=== PATIENT | male | born 1970 | race Caucasian/White ===

== ENCOUNTER 2017-11-14 17:55 | Emergency (ER) | payer MEDICAID, SELFPAY ==
[2017-11-14 17:56] VITALS: BP 176/113; PULSE 101; RESP 18; TEMP 37; O2SAT 97; BMI 28.3
--- NOTE | 2017-11-14 18:15 | ED.RN ---
pts volume started to escalate in triage, pt already refusing to talk to any nurses and refusing to put gown on. Security called to triage. Security sat with pt in the hallway until room 4 was available. Pt continues to yell about calling [facility] to get him a room, i need to get out of here now call them they will come get me im fucking dying
--- NOTE | 2017-11-14 18:20 | ED.RN ---
upon entering room pt states he wanted to be life flighted to [facility] because he was dying. informed pt that dr had to assess pt first. pt stated that he was not going to be assessed, that he was dying, and he would rather go in the [place] naturally. pt yelling and swearing while leaving er, ambulated without assistance out of department.
[2017-11-14 18:58] LABS: Absolute Lymphocyte Count 2.85 X10^3/ul (0.83-4.51); Basophil# 0.06 X10^3/uL; Basophil% 0.9 % (0-1); Eosinophil# 0.08 X10^3/uL; Eosinophils% 1.2 % (0-5); Hematocrit 35.2 % (40-54); Hemoglobin 11.4 g/dl (13.0-16.5); Lymphocyte # 2.85 X10^3/ul (4.0); Lymphocyte % 44.2 % (19-41); Mean Corp Hgb Conc 32.4 g/gl (32-36); Mean Corpuscular Hgb 26.7 pg (27.0-32.0); Mean Corpuscular Volume 82.4 fL (80-94); Mean Platelet Vol. 10.7 fl (6.2-12.0); Monocyte# 0.43 X10^3/uL; Monocyte% 6.7 % (0-10); Neutrophil # 3.03 X10^3/uL (2.7-7.7); Platelet Count 192 K/mm3 (150-450); RBC Distribution Width CV 17.9 % (11.6-14.6); RBC Distribution Width SD 54.2 fl (35.1-43.9); Red Blood Count 4.27 M/mm3 (4.6-6.2); White Blood Count 6.5 K/mm3 (4.4-11.0)
[2017-11-14 18:59] LABS: POSITIVE COUNT NO; POSITIVE DIFFERENTIAL NO; POSITIVE MORPHOLOGY NO
[2017-11-14 19:04] LABS: International Normalized Ratio 1.1; Prothrombin Time (Protime)PT. 14.1 SECONDS (11.7-14.9)
[2017-11-14 19:05] LABS: Anion Gap 11 (5-15); BUN 8 mg/dL (7-18); BUN/Creat Ratio 10.4 RATIO (10-20); Calcium,Total 8.6 mg/dL (8.5-10.1); Chloride 105 mmol/L (98-107); Creatinine, Serum 0.77 mg/dL (0.70-1.30); EST Glomerular Filtration Rate 115 mL/min (>60); Est Glom Filt Rate - Afr Amer 139 mL/min (>60); Estimated Creatinine Clearance 132.59 ml/min; Glucose 94 mg/dL (74-106); Partial Thromboplast Time 36.4 Seconds (24.1-36.2); Potassium 3.7 mmol/L (3.5-5.1); Sodium Level 140 mmol/L (136-145)
--- NOTE | 2017-11-14 19:16 | ED.RN ---
PT WAS YELLING, THIS RN, ANOTHER RN, HRO OFFICER, POOLING OPERATOR AND CHARGE OFFICER ENTERED ROOM, PT CONTINUED TO YELL THAT HE WAS LEAVING AND WANTED TO GO TO ANOTHER HOSP. AND THAT IF WE DIDNT TAKE HIS IV OUT THAT HE WOULD RIP IT OUT HIMSELF, WE ASKED THE PT TO SIT DOWN, THE PT REFUSED AND KEPT YELLING THEM WENT ON TO RIP HIS IV OUT AND WALKED OUT THE DOOR, HRO OFFICER AND POOLING OPERATOR ESCORTED THE PT OFF OF THE PROPERTY
--- NOTE | 2017-11-14 19:34 | ED.RN ---
PT SPOTTED BY A FAMILY MEMBER VISITING A DIFFERENT PT APPROX 1 BLOCK FROM THE HOSPITAL. A FEMALE FRIEND AND/OR FAMILY MEMBER ENTERED THE ER ASKING FOR THE PT TO PICK HIM UP.SHE WAS NOTIFIED THAT HE WAS STILL CLOSE TO THE HOSPITAL. SAID FEMALE LEFT TO GO PICK THE PATIENT UP
--- NOTE | 2017-11-14 23:41 | ED.VISSUMM ---
- ER Visit Summary Date of Service: 11/14/17 Chief Complaint: Vomiting and blood in stool History of Present Illness: The patient is a 47 M who is an unreliable informant. He is clearly intoxicated. He reports that he began having blood in his stool and vomiting blood 10 days ago. Reports that he has vomited all day. He also reports that he is having black formed stool 3 times a day for the past 10 days. He states that he was at [place] yesterday. Physical Examination: Vitals: Stable. Afebrile. General: Well-nourished and well-developed. Head: Normocephalic atraumatic. Neck: Supple, no lymphadenopathy. No JVD. Nontender. Cardiovascular: Regular rate and rhythm. No murmurs. Respiratory: No respiratory distress. Clear to auscultation bilaterally. Abdominal: Soft, nontender, nondistended, normal bowel sounds. No guarding, rebound, or peritoneal signs. Back: Nontender. Extremities: Nontender, no edema. Skin: Normal color, no rash. Neurologic: Alert and oriented ?3. Cranial nerves II through XII are intact. Normal strength and sensation. Psych: Agitated and clearly intoxicated. Test Results: CBC is marked for an H&H of 11.4 and 35.2. Lymphocytes of 44. Hemoglobin on July 13 was 12.1. Chem-7 is normal. His BUN is normal. INR is 1.1. PTT is 36.4. Blood alcohol level is 270. Emergency Department Course and Treatment: Patient is combative and verbally abusive in the emergency department. He reports that he spoke with his significant other who is going to pick him up. He pulled out his IV and was escorted to the ramp to the emergency department by police. Treatment Plan: Patient was picked up by his family member or significant other. He left prior to labs returning. Disposition: Left prior to completion of treatment. Impression: 1. Alcohol intoxication. 2. Left prior to completion of treatment. 3. History of esophageal varices. This note was generated with [employer] dictation software. It may contain incorrect words, spelling, and punctuation that were not noted in review of the chart prior to signing ED Disposition - Plan for ED Patient: Disposition: Against Medical Advice Chief Complaint: GI Bleed Referrals: Care Physician,No Primary [Primary Care Provider] -
== END 2017-11-14 19:30 | disposition left against medical advice (07) ==
PROVIDERS: Emergency Provider Emergency Medicine
DX: F10.229 Alcohol dependence with intoxication, unspecified (principal); Y90.8 Blood alcohol level of 240 mg/100 ml or more; R11.2 Nausea with vomiting, unspecified; Z72.0 Tobacco use; K92.1 Melena
CPT/HCPCS: 80048; 80320; 85025; 85610; 85730; 99282; J7030; A4216; G0480

== ENCOUNTER 2018-05-10 22:09 | Emergency (ER) | payer MEDICAID, SELFPAY ==
[2018-05-10 22:10] VITALS: BP 159/85; PULSE 73; RESP 16; TEMP 36.8; O2SAT 99; BMI 29.0
--- NOTE | 2018-05-10 22:40 | ED.VISSUMM ---
- ER Visit Summary Date of Service: 05/10/18 Chief Complaint: Upper GI Bleed History of Present Illness: The patient is a 47 M with a history of esophageal varices is presenting with nausea and vomiting bright red blood, he has had 2 episodes in the past 7 hours. He describes these as bright red blood with clots. He has not drank alcohol in over a month, he is currently in nursing home. He has epigastric pain, no lower abdominal pain. Physical Examination: Patient appears in some distress. Moist mucous membranes, no obvious facial deformity No C-spine tenderness supple neck. Regular rate and rhythm without any obvious murmurs Clear lungs bilaterally speaking in full sentences without any obvious respiratory distress Abdomen is soft with some epigastric tenderness, no lower abdominal pain, no guarding or rebound Moves all extremities without any difficulty or pain. Skin does not show any obvious rashes or lesions, no trauma. Alert oriented ?3 with no gross focal deficit Emergency Department Course and Treatment: NG tube was placed, patient did have a small amount of blood present. Hemoglobin is 10. He is currently stable. After discussing with surgery patient will be transferred there is no capability of doing endoscopy for variceal bleeds at this hospital since there is no GI coverage. Patient remained stable there is no reason for transfusion although he was typed and screened. Protonix IV was given. Disposition: Plan is to transfer in guarded condition Impression: Upper GI bleed This note was generated with [employer] dictation software. It may contain incorrect words, spelling, and punctuation that were not noted in review of the chart prior to signing ED Disposition - Plan for ED Patient: Chief Complaint: Nausea/Vomiting Referrals: Care Physician,No Primary [Primary Care Provider] -
--- NOTE | 2018-05-10 22:48 | ED.DCSUM_ITS ---
- ER Visit Summary Date of Service: 05/10/18 Chief Complaint: Upper GI Bleed History of Present Illness: The patient is a 47 M with a history of esophageal varices is presenting with nausea and vomiting bright red blood, he has had 2 episodes in the past 7 hours. He describes these as bright red blood with clots. He has not drank alcohol in over a month, he is currently in [facility]. He has epigastric pain, no lower abdominal pain. Physical Examination: Patient appears in some distress. Moist mucous membranes, no obvious facial deformity No C-spine tenderness supple neck. Regular rate and rhythm without any obvious murmurs Clear lungs bilaterally speaking in full sentences without any obvious respiratory distress Abdomen is soft with some epigastric tenderness, no lower abdominal pain, no guarding or rebound Moves all extremities without any difficulty or pain. Skin does not show any obvious rashes or lesions, no trauma. Alert oriented ?3 with no gross focal deficit Emergency Department Course and Treatment: NG tube was placed, patient did have a small amount of blood present. Hemoglobin is 10. He is currently stable. After discussing with surgery patient will be transferred there is no capability of doing endoscopy for variceal bleeds at this hospital since there is no GI coverage. Patient remained stable there is no reason for transfusion although he was typed and screened. Protonix IV was given. Disposition: Plan is to transfer in guarded condition Impression: Upper GI bleed This note was generated with [employer] dictation software. It may contain incorrect words, spelling, and punctuation that were not noted in review of the chart prior to signing ED Disposition - Plan for ED Patient: Chief Complaint: Nausea/Vomiting Referrals: Care Physician,No Primary [Primary Care Provider] -
[2018-05-10] MEDS: Ondansetron 4 MG/2 ML Vial IV (23:11)
[2018-05-10] MEDS: Lidocaine 4% 5 ML Ampul 2 ML INHALATION (23:11)
[2018-05-10 23:15] VITALS: PULSE 72; RESP 16
--- NOTE | 2018-05-10 23:30 | RAD_ITS ---
STUDY: X-RAY - ABDOMEN/PELVIS REASON FOR EXAM: Male, 47 years old. NG tube placement TECHNIQUE: 1 view COMPARISON: June 26, 2017 FINDINGS: The tip of the nasogastric tube is in the stomach. There is no bowel distention or free intraperitoneal air. No abnormal calcifications are seen projecting over the kidneys. Electronically Signed: Cristóbal Martínez MD at 0:00 EST Tel , Service support , RAD/Abdomen Single View (Portable)
[2018-05-10 23:37] LABS: ALB/GLOB Ratio 0.9 RATIO (0.9-2.4); AST(SGOT) 40 U/L (15-37); Alanine Aminotransfer ALT/SGPT 52 U/L (16-61); Albumin, Serum 3.5 g/dL (3.2-5.0); Alkaline Phosphatase 141 U/L (45-117); Anion Gap 7 (5-15); BUN 13 mg/dL (7-18); BUN/Creat Ratio 18.1 RATIO (10-20); Calcium,Total 8.5 mg/dL (8.5-10.1); Chloride 104 mmol/L (98-107); Creatinine, Serum 0.72 mg/dL (0.70-1.30); EST Glomerular Filtration Rate 124 mL/min (>60); Est Glom Filt Rate - Afr Amer 150 mL/min (>60); Globulin 4.1 g/dL (2.2-4.2); Glucose 81 mg/dL (74-106); Potassium 3.5 mmol/L (3.5-5.1); Protein, Total 7.6 g/dL (6.4-8.2); Sodium Level 139 mmol/L (136-145)
[2018-05-10 23:41] LABS: Absolute Lymphocyte Count 2.05 X10^3/ul (0.83-4.51); Absolute Neutrophil Count 2.1 X10^3/uL (2.0-7.7); Basophil# 0.04 X10^3/uL; Basophil% 0.8 % (0-1); Eosinophil# 0.15 X10^3/uL; Hematocrit 32.2 % (40-54); Lymphocyte # 2.05 X10^3/ul (4.0); Lymphocyte % 41.7 % (19-41); Mean Corp Hgb Conc 31.1 g/gl (32-36); Mean Corpuscular Hgb 25.1 pg (27.0-32.0); Mean Corpuscular Volume 80.7 fL (80-94); Monocyte% 12.2 % (0-10); Neutrophil # 2.08 X10^3/uL (2.7-7.7); Neutrophil % 42.3 % (47-70); Platelet Count 129 K/mm3 (150-450); RBC Distribution Width CV 17.4 % (11.6-14.6); RBC Distribution Width SD 50.6 fl (35.1-43.9); Red Blood Count 3.99 M/mm3 (4.6-6.2); White Blood Count 4.9 K/mm3 (4.4-11.0)
[2018-05-10 23:44] LABS: Differential Indicated SCAN CRITERIA MET; POSITIVE COUNT NO; POSITIVE DIFFERENTIAL NO; POSITIVE MORPHOLOGY YES
[2018-05-10 23:57] LABS: Differential Comment SCAN; Platelet Estimate MOD DEC (ADEQ); Platelet Morphology LARGE
[2018-05-11 00:29] VITALS: BP 126/100; PULSE 79; RESP 18; O2SAT 97
--- NOTE | 2018-05-11 02:58 | NURSING ---
ACCEPTED AT [facility] UNDER DR. AGUILAR ROOM 3114-6 REPORT
[2018-05-11 03:13] VITALS: BP 149/78; PULSE 68; RESP 18; O2SAT 98
== END 2018-05-11 04:30 | disposition short-term general hospital (02) ==
PROVIDERS: Emergency Provider Emergency Medicine
DX: K92.0 Hematemesis (principal); K92.2 Gastrointestinal hemorrhage, unspecified
CPT/HCPCS: 74018; 80053; 82274; 85025; 86850; 86900; 94640; 96365; 96366; 96375; 99285; J7040; A4216; J2405; J3490

== ENCOUNTER 2021-01-05 08:08 | Inpatient (IN) | payer MEDICAID, SELFPAY ==
[2019-09-19 22:27] VITALS: BMI 30.1
[2021-01-05] VITALS (8 sets, daily range): BP systolic 126–156; BP diastolic 70–116; PULSE 68–96; RESP 16–17; TEMP 35.7–37.1; O2SAT 95–98; BMI 27.8; BMI 26.4
[2021-01-05 09:07] LABS: Absolute Lymphocyte Count 1.93 X10^3/uL (0.83-4.51); Absolute Neutrophil Count 3.4 X10^3/uL (2.0-7.7); Basophil# 0.07 X10^3/uL; Basophil% 1.2 % (0-1); Eosinophil# 0.04 X10^3/uL; Eosinophils% 0.7 % (0-5); Hematocrit 40.6 % (40-54); Hemoglobin 14.1 g/dL (13.0-16.5); Lymphocyte # 1.93 X10^3/ul (0.83-4.51); Lymphocyte % 32.7 % (19-41); Mean Corp Hgb Conc 34.7 g/dL (32-36); Mean Corpuscular Hgb 31.9 pg (27.0-32.0); Mean Corpuscular Volume 91.9 fL (80-94); Mean Platelet Vol. 11.7 fl (6.2-12.0); Monocyte# 0.42 X10^3/uL; Monocyte% 7.1 % (0-10); NRBC Flagged by Analyzer 0 % (0-5); Neutrophil # 3.43 X10^3/uL (2.7-7.7); Platelet Count 179 K/mm3 (150-450); RBC Distribution Width CV 13.2 % (11.6-14.6); RBC Distribution Width SD 45.5 fl (35.1-43.9); Red Blood Count 4.42 M/mm3 (4.6-6.2); White Blood Count 5.9 K/mm3 (4.4-11.0)
[2021-01-05 09:21] LABS: ALB/GLOB Ratio 0.9 RATIO (0.9-2.4); AST(SGOT) 295 U/L (15-37); Alanine Aminotransfer ALT/SGPT 288 U/L (16-61); Albumin, Serum 3.7 g/dL (3.2-5.0); Alkaline Phosphatase 151 U/L (45-117); Anion Gap 9 (5-15); BUN 14 mg/dL (7-18); BUN/Creat Ratio 15.6 RATIO (10-20); Calcium,Total 8.2 mg/dL (8.5-10.1); Chloride 108 mmol/L (98-107); EST Glomerular Filtration Rate 95 mL/min (>60); Est Glom Filt Rate - Afr Amer 114 mL/min (>60); Estimated Creatinine Clearance 103.42 ml/min; Globulin 4.1 g/dL (2.2-4.2); Glucose 89 mg/dL (74-106); Potassium 3.1 mmol/L (3.5-5.1); Protein, Total 7.8 g/dL (6.4-8.2); Sodium Level 140 mmol/L (136-145)
--- NOTE | 2021-01-05 09:52 | EDS_ITS ---
HPI History of Present Illness Chief Complaint: Substance Abuse Informant: patient Narrative Narrative: Patient is a 50-year-old male with history of alcohol dependency as well as shortness of the liver with varices presenting for alcohol detox. Patient states his last drink was sometime in the morning. He states he drinks about 4 gallons of beer a day. He denies any liquor or wine use. He states he drinks as much as possible. He states that he also ingested methamphetamines last night. He would like to get sober. He states he does not want to be like this anymore and wants to get better. He states he is never really quit drinking except when he is been hospitalized. He does smoke 2 packs of cigarettes a day. He states he is never been through alcohol detox. Does not know of any history of DTs. [facility] Medical History Alcohol abuse Broken bones Cirrhosis Methamphetamine abuse Home Medications multivitamin [Multi-Day] 1 tab PO DAILY 01/05/21 [History Last Taken Unknown] Allergy/AdvReac Type Severity Reaction Status Date / Time bee pollen Allergy Other Verified 01/05/21 08:57 ibuprofen AdvReac Upset Verified 01/05/21 08:57 Stomach Social History Smoking Status: Current some day smoker tobacco type: cigarettes ROS ROS ED Constitutional Constitutional ED: Denies chills or fever(s) Eyes Eyes: Denies blurry vision or change in vision ENT ENT ED: Denies rhinorrhea or sore throat Cardiovascular Cardiovascular: Denies chest pain or palpitations Respiratory/Chest Respiratory/Chest: Denies cough or dyspnea Gastrointestinal Gastrointestinal: Denies abdominal pain, diarrhea or vomiting Genitourinary Genitourinary ED: Denies dysuria or urinary frequency Musculoskeletal Musculoskeletal: Denies arthralgias, myalgias or neck pain Integumentary Denies rash Neurologic Neurologic: Denies headache(s) or weakness Psychiatric Psychiatric: Denies anxiety or depression EXAM Physical Exam Const Vital Signs: 01/05/21 08:10 01/05/21 08:48 01/05/21 09:14 Temperature 96.3 F L Temperature Source Temporal Pulse Rate 96 80 78 Respiratory Rate 16 16 16 Blood Pressure 156/116 H 134/70 H 126/88 H Blood Pressure Mean 129 91 100 Pulse Ox 96 96 97 Oxygen Delivery Method Room Air Room Air Room Air Positive well nourished and well developed General Appearance ED: well developed HEENT Reports TM's clear and moist mucous membranes atraumatic Tympanic Membrane ED: Yes TM's clear Eyes PERRL and EOMs intact bilaterally Eyes Narrative: Bilateral horizontal fatiguing nystagmus present Neck supple and no JVD Chest Wall inspection of chest normal Resp normal respiratory effort and clear to auscultation bilaterally Cardio regular rate, regular rhythm and no murmurs GI soft to palpation, non-tender, non-distended and no masses Extremity General Extremety ED: Negative for edema or tenderness General Extremity: Negative for edema Neuro oriented x3 and CN's II-XII intact bilaterally Neuro Narrative: No focal deficits appreciated Sensorium / Orientation: alert Psych mental status grossly normal and thought process normal Skin Skin Narrative: Healing abrasions on right lower extremity. General Skin Exam: Negative for jaundice Rashes: no rashes MDM MDM MDM Narrative Medical decision making narrative: Patient evaluated for the desire of alcohol detox. Patient clinically is acting appropriate but I do suspect he is intoxicated. His alcohol level is elevated 223. He has a mild hypokalemia and associated transaminitis however I suspect this is from his history of cirrhosis and alcohol abuse but no other significant laboratory abnormalities. Patient mated to hospitalist service for inpatient detox. Lab Data Labs: Laboratory Results - last 24 hr 01/05/21 01/05/21 01/05/21 08:55 08:55 08:55 WBC 5.9 RBC 4.42 L Hgb 14.1 Hct 40.6 MCV 91.9 MCH 31.9 MCHC 34.7 RDW Std Deviation 45.5 H RDW Coeff of John 13.2 Plt Count 179 MPV 11.7 Immature Gran % (Auto) 0.300 Neut % (Auto) 58.0 Lymph % (Auto) 32.7 [place] % (Auto) 7.1 Eos % (Auto) 0.7 Baso % (Auto) 1.2 H Absolute Neuts (auto) 3.4 Absolute Lymphs (auto) 1.93 Nucleated RBC % 0 Sodium 140 Potassium 3.1 L Chloride 108 H Carbon Dioxide 23.0 Anion Gap 9 BUN 14 Creatinine 0.90 Estim Creat Clear Calc 103.42 Est GFR (MDRD) Af Amer 114 Est GFR (MDRD) Non-Af 95 BUN/Creatinine Ratio 15.6 Glucose 89 Calcium 8.2 L Total Bilirubin 1.00 AST 295 H ALT 288 H Alkaline Phosphatase 151 H Total Protein 7.8 Albumin 3.7 Globulin 4.1 Albumin/Globulin Ratio 0.9 Ethyl Alcohol 223.0 Discharge Plan Triage Chief Complaint: Substance Abuse ED Provider: Karine Arguelles Dx/Rx/DC Orders Clinical Impression: Alcohol dependence with acute alcoholic intoxication Prescriptions: No Action multivitamin [Multi-Day] Tablet 1 tab PO DAILY RF: 0 Primary Care Provider: Care Physician,No Primary Referrals: Care Physician,No Primary [Primary Care Provider] - Disposition Disposition: Acute Care [facility]
--- NOTE | 2021-01-05 09:59 | PCM.HP.STD ---
HPI - General HPI Narrative PITO CAMPBELL, is a 50 M with a PMh as outlined below who presents for acute alcohol detox. His last drink was on the morning of admission, and he drinks about 4 gallons of beer. he also uses methamphetamines, which he last used the day before admission. Serum alcohol level is 223, and he says he has never been through alcohol detox. He does have a history of cirrhosis with varices. Vitals in the ED 9 7% on room air. CBC showed hemoglobin of 14.1 with WBC of 5.9 and platelets of 179 chemistry showed sodium of 140 with potassium of 3.1, AST/ALT of 295/288 and ALP of 151, as well as ALP of 151. He is being admitted to be managed for acute alcohol detox. [facility] Medical History Alcohol abuse Broken bones Cirrhosis Methamphetamine abuse Home Medications multivitamin [Multi-Day] 1 tab PO DAILY 01/05/21 [History Last Taken Unknown] Allergy/AdvReac Type Severity Reaction Status Date / Time bee pollen Allergy Other Verified 01/05/21 08:57 ibuprofen AdvReac Upset Verified 01/05/21 08:57 Stomach Social History Smoking Status: Current some day smoker tobacco type: cigarettes ROS Constitutional Constitutional: Denies anorexia, change in weight, chills, fever(s) or malaise Eyes Eyes: Denies double vision ENT HEENT: Denies dysphagia or headache(s) Cardiovascular Cardiovascular: Denies chest pain, dyspnea on exertion, edema, lightheadedness, orthopnea or palpitations Respiratory/Chest Respiratory/Chest: Denies cough, dyspnea, productive cough, shortness of breath at rest or shortness of breath with exertion Gastrointestinal Gastrointestinal: Denies abdominal pain, diarrhea, nausea or vomiting Genitourinary Genitourinary: Denies burning urination, difficulty urinating or dysuria Musculoskeletal Musculoskeletal: Denies arthralgias, back pain, joint pain or joint swelling Neurologic Neurologic: Denies abnormal gait, abnormal speech or confusion Psychiatric Psychiatric: Denies anxiety or depression Endocrine Endocrinology: Denies change in body appearance Hematologic/Lymphatic Hematologic/Lymphatic: Denies anemia Allergic/Immunologic Allergic/Immunologic: Denies asthma Vital Signs Vital Signs Vital Signs: 01/05/21 08:10 01/05/21 08:48 01/05/21 09:14 Temperature 96.3 F L Temperature Source Temporal Pulse Rate 96 80 78 Respiratory Rate 16 16 16 Blood Pressure 156/116 H 134/70 H 126/88 H Blood Pressure Mean 129 91 100 Pulse Ox 96 96 97 Oxygen Delivery Method Room Air Room Air Room Air Weight Weight: 199 lb 4.766 oz Body Mass Index (BMI) 27.8 Physical Exam Const alert, oriented x3 and no apparent distress General Appearance: cooperative HEENT normocephalic, head/scalp atraumatic, hearing grossly normal bilaterally and moist oral mucous membranes Eyes EOMs intact bilaterally and conjunctivae normal Neck no lymphadenopathy, supple and no JVD Resp normal respiratory effort, no retractions, no use of accessory muscles and clear to auscultation bilaterally Cardio regular rate, regular rhythm, S1 normal heart sound, S2 normal heart sound and no murmurs GI normal to inspection, nondistended, normoactive bowel sounds, soft to palpation, non-tender and non-distended Extremity normal to inspection, full ROM and no clubbing, cyanosis or edema Peripheral Pulses: Yes pulses 2+ throughout Skin no rashes or lesions noted Neuro oriented x3 Sensorium / Orientation: awake and alert Psych affect normal Results Lab / Micro Data Result Diagrams: 01/05/21 08:55 01/05/21 08:55 Labs: Laboratory Results - last 24 hr 01/05/21 01/05/21 01/05/21 08:55 08:55 08:55 WBC 5.9 RBC 4.42 L Hgb 14.1 Hct 40.6 MCV 91.9 MCH 31.9 MCHC 34.7 RDW Std Deviation 45.5 H RDW Coeff of John 13.2 Plt Count 179 MPV 11.7 Immature Gran % (Auto) 0.300 Neut % (Auto) 58.0 Lymph % (Auto) 32.7 [place] % (Auto) 7.1 Eos % (Auto) 0.7 Baso % (Auto) 1.2 H Absolute Neuts (auto) 3.4 Absolute Lymphs (auto) 1.93 Nucleated RBC % 0 Sodium 140 Potassium 3.1 L Chloride 108 H Carbon Dioxide 23.0 Anion Gap 9 BUN 14 Creatinine 0.90 Estim Creat Clear Calc 103.42 Est GFR (MDRD) Af Amer 114 Est GFR (MDRD) Non-Af 95 BUN/Creatinine Ratio 15.6 Glucose 89 Calcium 8.2 L Total Bilirubin 1.00 AST 295 H ALT 288 H Alkaline Phosphatase 151 H Total Protein 7.8 Albumin 3.7 Globulin 4.1 Albumin/Globulin Ratio 0.9 Ethyl Alcohol 223.0 Assessment & Plan Assessment/Plan (1) Alcohol dependence with acute alcoholic intoxication: PLAN: #Acute alcohol detox Admit to [facility] Serum alcohol level is 223 Start on alcohol drug protocol with phenobarbital Thiamine, folic acid and Multivite Monitor CIWA score Adjunctive treatment for symptomatic relief. #Hypokalemia: Potassium is 3.1. We will replace and trend. #History of cirrhosis with esophageal varices Stable. DVT prophylaxis: Low risk. Encouraged to ambulate Charges/Coding Visit Charges Inpatient E&M: 57689 Subs Hosp L3
--- NOTE | 2021-01-05 10:04 | NURSING ---
MED SURG [facility] ALCOHOL DETOX
[2021-01-05 10:23] LABS: Magnesium 1.7 mg/dL (1.6-2.6)
--- NOTE | 2021-01-05 10:36 | CM.ED ---
SOCIAL WORK Referral Source: Self-referral Reason for Consult: Substance Abuse- requesting detox from alcohol Patient admitted to [facility] for alcohol withdrawal management. Call to [facility], spoke with Ibeth to update on patient's admission to [facility]. Plan: ISAEL Mcqueen, INTERSTATE PLANNER, FLORAL DESIGNER SALESPERSON
[2021-01-05] MEDS: Phenobarbital 32.4 MG Tablet PO ×4 (11:43→23:13)
[2021-01-05] MEDS: LORazepam 1 MG Tablet 2 MG PO ×2 (15:20→22:07)
[2021-01-05] MEDS: Cephalexin 500 MG Capsule PO ×2 (18:06→23:13)
[2021-01-05] MEDS: traZODone 100 MG Tablet PO (22:07)
[2021-01-06 02:42] VITALS: BP 127/83; PULSE 76; RESP 16; TEMP 36.6; O2SAT 98
[2021-01-06] MEDS: Phenobarbital 32.4 MG Tablet PO ×6 (02:44→22:33)
[2021-01-06 06:18] VITALS: BP 132/85; PULSE 62; RESP 16; TEMP 36.6; O2SAT 97
[2021-01-06] MEDS: Cephalexin 500 MG Capsule PO ×4 (06:21→22:33)
--- NOTE | 2021-01-06 07:35 | PN.HOSP_ITS ---
Subjective Subjective Patient seen and examined. HE had an uneventful night, and had no complaints this morning. Review of systems is otherwise negative. He has remained hemodynamically stable. Objective Data Objective Data Vital Signs: Vital Signs Temp Pulse Resp BP Pulse Ox 97.9 F 62 16 132/85 H 97 01/06/21 06:18 01/06/21 06:18 01/06/21 06:18 01/06/21 06:18 01/06/21 06:18 Oxygen Delivery Method Room Air Weight: 195 lb 5.273 oz Body Mass Index (BMI) 26.4 Lab / Micro Data Result Diagrams: 01/05/21 08:55 01/05/21 08:55 Labs: Laboratory Results - last 24 hr 01/05/21 01/05/21 01/05/21 08:55 08:55 08:55 WBC 5.9 RBC 4.42 L Hgb 14.1 Hct 40.6 MCV 91.9 MCH 31.9 MCHC 34.7 RDW Std Deviation 45.5 H RDW Coeff of John 13.2 Plt Count 179 MPV 11.7 Immature Gran % (Auto) 0.300 Neut % (Auto) 58.0 Lymph % (Auto) 32.7 [place] % (Auto) 7.1 Eos % (Auto) 0.7 Baso % (Auto) 1.2 H Absolute Neuts (auto) 3.4 Absolute Lymphs (auto) 1.93 Nucleated RBC % 0 Sodium 140 Potassium 3.1 L Chloride 108 H Carbon Dioxide 23.0 Anion Gap 9 BUN 14 Creatinine 0.90 Estim Creat Clear Calc 103.42 Est GFR (MDRD) Af Amer 114 Est GFR (MDRD) Non-Af 95 BUN/Creatinine Ratio 15.6 Glucose 89 Calcium 8.2 L Magnesium Total Bilirubin 1.00 AST 295 H ALT 288 H Alkaline Phosphatase 151 H Total Protein 7.8 Albumin 3.7 Globulin 4.1 Albumin/Globulin Ratio 0.9 Ethyl Alcohol 223.0 01/05/21 08:55 WBC RBC Hgb Hct MCV MCH MCHC RDW Std Deviation RDW Coeff of John Plt Count MPV Immature Gran % (Auto) Neut % (Auto) Lymph % (Auto) [place] % (Auto) Eos % (Auto) Baso % (Auto) Absolute Neuts (auto) Absolute Lymphs (auto) Nucleated RBC % Sodium Potassium Chloride Carbon Dioxide Anion Gap BUN Creatinine Estim Creat Clear Calc Est GFR (MDRD) Af Amer Est GFR (MDRD) Non-Af BUN/Creatinine Ratio Glucose Calcium Magnesium 1.7 Total Bilirubin AST ALT Alkaline Phosphatase Total Protein Albumin Globulin Albumin/Globulin Ratio Ethyl Alcohol Physical Exam Const alert, oriented x3 and no apparent distress General Appearance: cooperative Exam Limitations: no limitations HEENT normocephalic, head/scalp atraumatic, hearing grossly normal bilaterally and moist oral mucous membranes Head and Scalp: normocephalic Eyes PERRL, EOMs intact bilaterally and conjunctivae normal Neck no lymphadenopathy, supple and no JVD Resp normal respiratory effort, no retractions, no use of accessory muscles and clear to auscultation bilaterally Cardio regular rate, regular rhythm, S1 normal heart sound, S2 normal heart sound and no murmurs GI normal to inspection, nondistended, normoactive bowel sounds, soft to palpation, non-tender and non-distended Extremity normal to inspection, full ROM and no clubbing, cyanosis or edema Peripheral Pulses: Yes pulses 2+ throughout Skin Skin Narrative: has superficial ulcerations with scabs over his right knee and right foot. Neuro oriented x3 Sensorium / Orientation: awake and alert Psych affect normal Assessment & Plan Assessment/Plan (1) Alcohol dependence with acute alcoholic intoxication: PLAN: #Acute alcohol detox * on alcohol drug protocol with phenobarbital * Thiamine, folic acid and Multivite * Monitor CIWA score * Adjunctive treatment for symptomatic relief. * #Hypokalemia: was aggressively replaced. Will trend # Mild Cellulitis of hte RLE * has superficial resolving scabs with surrounding erythema. * started on PO Keflex * #History of cirrhosis with esophageal varices * Stable. * DVT prophylaxis: Low risk. Encouraged to ambulate Charges/Coding Visit Charges Inpatient E&M: 36677 Subs Hosp L2
--- NOTE | 2021-01-06 09:26 | ADDICTION ---
This music writer attempted to meet with PT. PT was asleep upon arrival and woke to verbal queing, however, was unable to participate appropriately due to lethargy and confusion. This music writer will attempt to meet with PT at next visit on 01/07/21.
[2021-01-06 10:22] VITALS: BP 136/79; PULSE 68; RESP 18; TEMP 36.3; O2SAT 98
[2021-01-06] MEDS: Thiamine Hydrochloride 100 MG Tablet PO (10:30)
[2021-01-06] MEDS: Dicyclomine 10 MG Capsule 20 MG PO (10:30)
[2021-01-06] MEDS: Multivitamins,Therapeutic Tablet 1 TABLET PO (10:30)
[2021-01-06] MEDS: Ondansetron 8 MG Tablet PO (10:31)
[2021-01-06] MEDS: Folic Acid 1 MG Tablet PO (10:31)
[2021-01-06 14:52] VITALS: RESP 18; TEMP 36.5
[2021-01-06] MEDS: hydrOXYzine PAM 25 MG Capsule 50 MG PO (14:54)
--- NOTE | 2021-01-06 16:46 | CHAPLAIN ---
Type of Pastoral Visit ___ Initial Visit ___ Follow-up Visit ___ On-call Visit ___ General Patient Visit ___ Spiritual Assessment ___ Family Conference ___ Bereavement ___ Rapid Response ___ Code Blue ___ Other (describe below) Pastoral Care Referral From ___ Patient ___ Family ___ Nurse ___ Physician ___ Java Development Manager ___ Electric Milkers Installer ___ Other (describe below) Sacrament/Intervention ___ Active listening ___ Anointing ___ Shinto ___ Bereavement ___ Communion ___ [place]ichi exploration ___ ___ Life review ___ Prayer ___ Reconciliation ___ Sacrament of Sick ___ Supportive presence ___ Wedding ___ Other (describe below) Pastoral Comments two attempts made to visit patient but he is sleeping soundly;
[2021-01-06 18:37] VITALS: BP 103/57; PULSE 64; RESP 18; TEMP 36.9; O2SAT 96
[2021-01-06 22:31] VITALS: BP 124/77; PULSE 66; RESP 16; TEMP 37; O2SAT 98
[2021-01-07 03:15] VITALS: BP 140/79; PULSE 72; RESP 16; TEMP 36.7; O2SAT 97
[2021-01-07] MEDS: Phenobarbital 32.4 MG Tablet PO ×5 (03:20→18:33)
[2021-01-07] MEDS: Cephalexin 500 MG Capsule PO ×3 (06:27→18:33)
--- NOTE | 2021-01-07 07:37 | PN.HOSP_ITS ---
Subjective Subjective Patient seen and examined. He had no complaints and had an uneventful night. Review of systems is otherwise negative. He has remained hemodynamically stable. Objective Data Objective Data Vital Signs: Vital Signs Temp Pulse Resp BP Pulse Ox 98.1 F 72 16 140/79 H 97 01/07/21 03:15 01/07/21 03:15 01/07/21 03:15 01/07/21 03:15 01/07/21 03:15 Oxygen Delivery Method Room Air Weight: 195 lb 5.273 oz Body Mass Index (BMI) 26.4 Lab / Micro Data Result Diagrams: 01/05/21 08:55 01/05/21 08:55 Physical Exam Const alert, oriented x3 and no apparent distress General Appearance: cooperative Exam Limitations: no limitations HEENT normocephalic, head/scalp atraumatic, hearing grossly normal bilaterally and moist oral mucous membranes Head and Scalp: normocephalic Eyes PERRL, EOMs intact bilaterally and conjunctivae normal Neck no lymphadenopathy, supple and no JVD Resp normal respiratory effort, no retractions, no use of accessory muscles and clear to auscultation bilaterally Cardio regular rate, regular rhythm, S1 normal heart sound, S2 normal heart sound and no murmurs GI normal to inspection, nondistended, normoactive bowel sounds, soft to palpation, non-tender and non-distended Extremity normal to inspection, full ROM and no clubbing, cyanosis or edema Peripheral Pulses: Yes pulses 2+ throughout Skin no rashes or lesions noted Skin Narrative: has superficial ulcerations with scabs over his right knee and right foot. Neuro oriented x3 Sensorium / Orientation: awake and alert Psych affect normal Assessment & Plan Assessment/Plan (1) Alcohol dependence with acute alcoholic intoxication: PLAN: #Acute alcohol detox * on alcohol drug protocol with phenobarbital * Thiamine, folic acid and Multivite * Monitor CIWA score * Adjunctive treatment for symptomatic relief. * #Hypokalemia: resolved. # Mild Cellulitis of hte RLE * has superficial resolving scabs with surrounding erythema. * on PO keflex * #History of cirrhosis with esophageal varices * Stable. * DVT prophylaxis: Low risk. Encouraged to ambulate Disposition: wants to go to an inpatient facility for further rehab after discharge. Charges/Coding Visit Charges Inpatient E&M: 05957 Subs Hosp L2
[2021-01-07 08:18] VITALS: BP 110/62; PULSE 81; RESP 16; TEMP 36.6; O2SAT 96
[2021-01-07] MEDS: Folic Acid 1 MG Tablet PO (08:25)
[2021-01-07] MEDS: Dicyclomine 10 MG Capsule 20 MG PO (08:25)
[2021-01-07] MEDS: Multivitamins,Therapeutic Tablet 1 TABLET PO (08:25)
[2021-01-07] MEDS: Thiamine Hydrochloride 100 MG Tablet PO (08:25)
[2021-01-07] MEDS: Ondansetron 8 MG Tablet PO (08:25)
--- NOTE | 2021-01-07 09:49 | ADDICTION ---
This business writer met with PT to conduct ASAM, MSE, AUDIT assessments and to plan for d/c. PT was lethargic throughout assessments but participated. PT fell asleep after noting that he wants counseling at [facility]. This business writer provided walk-in assessment times to PT but was unable to review d/c plan as he was asleep and did not rouse to verbal queuing. PT was also provided with a list of PCPs who accept his insurance.
--- NOTE | 2021-01-07 15:04 | CHAPLAIN ---
Type of Pastoral Visit ___ Initial Visit ___ Follow-up Visit ___ On-call Visit ___ General Patient Visit ___ Spiritual Assessment ___ Family Conference ___ Bereavement ___ Rapid Response ___ Code Blue ___ Other (describe below) Pastoral Care Referral From ___ Patient ___ Family ___ Nurse ___ Physician ___ Case Mgr ___ Director Operations Broadcast ___ Other (describe below) Sacrament/Intervention ___ Active listening ___ Anointing ___ Sabianism ___ Bereavement ___ Communion ___ Chichi exploration ___ ___ Life review ___ Prayer ___ Reconciliation ___ Sacrament of Sick ___ Supportive presence ___ Wedding ___ Other (describe below) Pastoral Comments three attempts in three days to make visit to this patient; pt is sleeping and unable to awaken at each encounter
[2021-01-07 15:20] VITALS: BP 133/88; PULSE 71; RESP 16; TEMP 37.1; O2SAT 98
[2021-01-08 00:21] VITALS: BP 137/93; PULSE 87; RESP 16; TEMP 36.9; O2SAT 98
[2021-01-08] MEDS: Phenobarbital 32.4 MG Tablet PO ×4 (00:21→18:17)
[2021-01-08] MEDS: Cephalexin 500 MG Capsule PO ×4 (00:21→18:17)
[2021-01-08] MEDS: Gabapentin 300 MG Capsule PO ×3 (00:25→20:59)
[2021-01-08 07:49] VITALS: BP 130/85; PULSE 68; RESP 16; TEMP 36.6; O2SAT 97
[2021-01-08] MEDS: Folic Acid 1 MG Tablet PO (07:58)
[2021-01-08] MEDS: Multivitamins,Therapeutic Tablet 1 TABLET PO (07:58)
[2021-01-08] MEDS: Thiamine Hydrochloride 100 MG Tablet PO (07:59)
--- NOTE | 2021-01-08 11:47 | ADDICTION ---
This rfp writer met with PT to plan for d/c. PT A+Ox4 and participated actively. PT plans to direct admit to [facility] for recovery services. A staff member from [facility] will provide transportation for [email or web address] PT on 01/09/21 @noon.
--- NOTE | 2021-01-08 13:53 | PN.HOSP_ITS ---
Subjective Subjective Patient seen and examined. He had no complaints and felt well this morning. Review of systems is otherwise negative, and he has remained hemodynamically stable. Objective Data Objective Data Vital Signs: Vital Signs Temp Pulse Resp BP Pulse Ox 97.8 F 68 16 130/85 H 97 01/08/21 07:49 01/08/21 07:49 01/08/21 07:49 01/08/21 07:49 01/08/21 07:49 Oxygen Delivery Method Room Air Weight: 195 lb 5.273 oz Body Mass Index (BMI) 26.4 Lab / Micro Data Result Diagrams: 01/05/21 08:55 01/05/21 08:55 Physical Exam Const alert, oriented x3 and no apparent distress General Appearance: cooperative Exam Limitations: no limitations HEENT normocephalic, head/scalp atraumatic, hearing grossly normal bilaterally and moist oral mucous membranes Head and Scalp: normocephalic Eyes PERRL, EOMs intact bilaterally and conjunctivae normal Neck no lymphadenopathy, supple and no JVD Resp normal respiratory effort, no retractions, no use of accessory muscles and clear to auscultation bilaterally Cardio regular rate, regular rhythm, S1 normal heart sound, S2 normal heart sound and no murmurs GI normal to inspection, nondistended, normoactive bowel sounds, soft to palpation, non-tender and non-distended Extremity normal to inspection, full ROM and no clubbing, cyanosis or edema Skin no rashes or lesions noted Skin Narrative: has superficial ulcerations with scabs over his right knee and right foot. Neuro oriented x3 Sensorium / Orientation: awake and alert Psych affect normal Assessment & Plan Assessment/Plan (1) Alcohol dependence with acute alcoholic intoxication: PLAN: #Acute alcohol detox * on alcohol drug protocol with phenobarbital * Thiamine, folic acid and Multivite * Monitor CIWA score * Adjunctive treatment for symptomatic relief. * #Hypokalemia: resolved. # Mild Cellulitis of hte RLE * has superficial resolving scabs with surrounding erythema. * on PO keflex * #History of cirrhosis with esophageal varices * Stable. * DVT prophylaxis: Low risk. Encouraged to ambulate Disposition: will have a bed in [facility] for recovery services tomorrow. To be discharged tomorrow. Charges/Coding Visit Charges Inpatient E&M: 76405 Subs Hosp L2
[2021-01-08 18:11] VITALS: BP 129/90; PULSE 69; RESP 16; TEMP 36.6; O2SAT 97
[2021-01-08 20:56] VITALS: BP 123/81; PULSE 80; RESP 16; TEMP 36.6; O2SAT 95
[2021-01-09] MEDS: Phenobarbital 32.4 MG Tablet PO ×2 (00:15→06:18)
[2021-01-09] MEDS: Cephalexin 500 MG Capsule PO ×3 (00:15→11:40)
--- NOTE | 2021-01-09 07:56 | DS.PCM_ITS ---
Providers Date of Admission: 01/05/21 Primary Care Physician: Lisa Primary Care Phys Consultations 01/05/21 16:16 Consult: Onc/Wound/casino banker Routine Comment: Reason for Consult:: superficial healing ulcerations on thigh and LEs Reason For Visit: ALCOHOL DETOX Diagnosis Discharge Diagnosis (1) Alcohol dependence with acute alcoholic intoxication: Status: Acute Code(s): F10.229 - Alcohol dependence with intoxication, unspecified Medications at Discharge Home Medications multivitamin [Multi-Day] 1 tab PO DAILY 01/05/21 Hospital Course Operations None Procedures None Summary of Care Provided Minutes Spent on Discharge: 40 Hospital Course: PITO CAMPBELL, is a 50 M with a PMh as outlined below who pr esents for acute alcohol detox. His last drink was on the morning of admission, and he drinks about 4 gallons of beer. he also uses methamphetamines, which he last used the day before admission. Serum alcohol level is 223, and he says he has never been through alcohol detox. He does have a history of cirrhosis with varices. Vitals in the ED 9 7% on room air. CBC showed hemoglobin of 14.1 with WBC of 5.9 and platelets of 179 chemistry showed sodium of 140 with potassium of 3.1, AST/ALT of 295/288 and ALP of 151, as well as ALP of 151. He was admitted to be managed for acute alcohol detox. He was started on alcohol withdrawal protocol with phenobarbital. Patient tolerated a 3-day detox process. Patient wished to be discharged to an inpatient facility to continue his rehab. He was therefore discharged to [facility] facility on 01/09/2021 and is to follow- up with his primary care doctor on outpatient basis. Patient was seen and examined prior to discharge. He had no complaints. Review of systems otherwise negative. Labs and vitals reviewed. Medications reviewed and reconciled. Physical Exam Const alert, oriented x3 and no apparent distress General Appearance: cooperative and comfortable Exam Limitations: no limitations HEENT normocephalic, head/scalp atraumatic, hearing grossly normal bilaterally and moist oral mucous membranes Eyes PERRL, EOMs intact bilaterally and conjunctivae normal Neck no lymphadenopathy, supple and no JVD Resp normal respiratory effort, no retractions, no use of accessory muscles and clear to auscultation bilaterally Cardio regular rate, regular rhythm, S1 normal heart sound, S2 normal heart sound and no murmurs GI normal to inspection, nondistended, normoactive bowel sounds, soft to palpation, non-tender and non-distended Extremity normal to inspection, full ROM and no clubbing, cyanosis or edema Skin no rashes or lesions noted Skin Narrative: has superficial ulcerations with scabs over his right knee and right foot. Neuro oriented x3 Sensorium / Orientation: awake and alert Psych affect normal Weight / BMI Weight Weight: 195 lb 5.273 oz Body Mass Index (BMI) 26.4 ABG / Lab / Microbiology Data Result Diagrams: 01/05/21 08:55 01/05/21 08:55 D/C Instructions Discharge Diet: No restrictions Discharge Activity: Return to Normal Activity Weight Bearing Status: Weight bearing as tolerated Call your doctor if you observe: Fever of 101 or Higher, Shortness of breath, Fainting spells and Increased palpitations (irregular heartbeat) Meaningful Use Info Meaningful Use Diagnoses (Choose all that apply): None applicable Discharge Plan Admission Admit Date/Time: 01/05/21 10:12 Primary Reason for Your Visit: acute alcohol withdrawal Attending Provider: Annamarie Romero Primary Care Provider: Care Physician,Lisa Primary Discharge Orders/Prescriptions Prescriptions: No Action multivitamin [Multi-Day] Tablet 1 tab PO DAILY RF: 0 Referrals / Follow Up: Anastacia Victoria MD [STAFF PHYSICIAN] - Within 2 Weeks (call office to set up PCP appointment) Care Physician,No Primary [Primary Care Provider] - Disposition Disposition (needs filled in before D/C Order can be placed): Home, Self Care Charges/Coding Visit Charges Inpatient E&M: 04460 Disch Hosp
[2021-01-09 08:43] VITALS: BP 132/88; PULSE 86; RESP 14; TEMP 36.8; O2SAT 98
[2021-01-09] MEDS: Folic Acid 1 MG Tablet PO (08:49)
[2021-01-09] MEDS: Thiamine Hydrochloride 100 MG Tablet PO (08:49)
[2021-01-09] MEDS: Multivitamins,Therapeutic Tablet 1 TABLET PO (08:49)
[2021-01-09] MEDS: Gabapentin 300 MG Capsule PO (08:53)
[2021-01-09] MEDS: Ondansetron 8 MG Tablet PO (08:53)
== END 2021-01-09 12:20 | DRG 775 ==
LOC: ED 10:05 → MS3 10:26
PROVIDERS: Admitting Provider Student in an Organized Health Care Education/Training Program; Emergency Provider Emergency Medicine; Visit Provider Student in an Organized Health Care Education/Training Program
DX: F10.229 Alcohol dependence with intoxication, unspecified (principal); Y90.7 Blood alcohol level of 200-239 mg/100 ml; K74.60 Unspecified cirrhosis of liver; I85.10 Secondary esophageal varices without bleeding; E87.6 Hypokalemia; L03.115 Cellulitis of right lower limb; L97.119 Non-pressure chronic ulcer of right thigh with unspecified severity; L97.919 Non-pressure chronic ulcer of unspecified part of right lower leg with unspecified severity; F15.10 Other stimulant abuse, uncomplicated; F17.210 Nicotine dependence, cigarettes, uncomplicated
CPT/HCPCS: 80053; 82077; 83735; 85025; 99282

== ENCOUNTER 2024-08-29 23:22 | Emergency (ER) | payer MEDICAID, SELFPAY ==
[2024-08-29 23:22] VITALS: BP 161/98; PULSE 81; RESP 20; TEMP 36.1; O2SAT 100
--- NOTE | 2024-08-29 23:33 | EX.ED.VIS.EY ---
HPI History of Present Illness Chief Complaint: Eye Problem Informant: patient and spouse/S.O. Narrative Narrative: Patient is a 53-year-old male with past medical history of esophageal varices from alcohol abuse. He also wears contact lenses. He states that he does multiple woodworking project and roughly 24 hours ago felt that sawdust entered his right eye. He states he removed his contacts and flushed his eyes. However he has had persistent right eye pain light sensitivity and increased tearing. He states he is unsure if he has any retained foreign object or potential infection from the injury and therefore comes in for evaluation. [facility] History Broken bones Cirrhosis Methamphetamine abuse Alcohol abuse Home Medications ?Medication ?Instructions ?Recorded ?Last Taken ?Type multivitamin 1 tab PO DAILY 01/05/21 Unknown History ciprofloxacin HCl 0.3 % eye drops 2 drp RIGHT EYE 4X/DAY 7 days #10 08/30/24 Unknown Rx mL oxycodone 5 mg tablet 5 mg PO Q6H PRN pain 3 days #12 08/30/24 Unknown Rx tabs Allergy/AdvReac Type Severity Reaction Status Date / Time bee pollen Allergy Other Verified 08/29/24 23:22 ibuprofen AdvReac Upset Verified 08/29/24 23:22 Stomach Social History Smoking Status: Current every day smoker tobacco type: cigarettes ROS ROS ED Constitutional Constitutional ED: Denies chills or fever(s) Eyes Eyes: Reports blurry vision and other Details: Positive right eye pain. Positive right eye discharge. Positive blurry vision right eye ENT ENT ED: Denies sore throat Cardiovascular Cardiovascular: Denies chest pain Respiratory/Chest Respiratory/Chest: Denies cough or dyspnea Gastrointestinal Gastrointestinal: Denies abdominal pain, diarrhea, nausea or vomiting Genitourinary Genitourinary ED: Denies dysuria Musculoskeletal Musculoskeletal: Denies myalgias Integumentary Denies rash Neurologic Neurologic: Denies headache(s) Hematologic/Lymphatic Hematologic/Lymphatic: Denies easy bleeding or easy bruising EXAM Physical Exam Const Vital Signs: 08/29/24 23:22 Temperature 97 F L Temperature Source Temporal Pulse Rate 81 Respiratory Rate 20 H Blood Pressure 161/98 H Blood Pressure Mean 119 Pulse Ox 100 Oxygen Delivery Method Room Air Positive well nourished and well developed General Appearance ED: well developed HEENT HEENT Narrative: Normocephalic atraumatic Eyes PERRL and EOMs intact bilaterally Eyes Narrative: There is diffuse scleral injection of the right eye with purulent discharge present. The upper lid was everted there is no obvious retained foreign body. Staining with fluorescein and slit-lamp examination shows a large corneal abrasion essentially extending from the 9 to 3 o'clock position over top the iris and lower portion of the pupil. There is no obvious retained foreign body. Negative Kameron sign. Neck supple Resp normal respiratory effort and clear to auscultation bilaterally Cardio regular rate and regular rhythm Extremity normal to inspection Neuro oriented x3, CN's II-XII intact bilaterally, moves all extremities and no sensory deficits noted Sensorium / Orientation: alert Motor Exam: strength 5/5 throughout Psych mental status grossly normal Skin no rashes or lesions noted MDM MDM MDM Narrative Medical decision making narrative: Patient presented to the ER hypertensive otherwise with stable vitals. He reported eye trauma roughly 24 hours ago. With concern for corneal abrasion versus corneal foreign body versus globe rupture the patient underwent testing with fluorescein. This revealed no retained foreign object or signs of globe rupture but it did show a large corneal abrasion which correlates with his symptoms. As he wears contact lenses there is concern for Pseudomonas infection and therefore he was placed on ciprofloxacin eyedrops. However as he does not have signs of globe rupture there is no need for further intervention in the ER and he can follow-up with ophthalmology as an outpatient. History & Record Review Discussion w/independent historian: Patient and Significant other Discharge Plan Triage Chief Complaint: Eye Problem ED Provider: Magdy Rivas Dx/Rx/DC Orders Clinical Impression: Corneal abrasion, right, Esophageal varices, History of alcohol abuse Instructions: ED Corneal Abrasion Prescriptions: New ciprofloxacin HCl 0.3 % drops 2 drp RIGHT EYE 4X/DAY 7 Days Qty: 10 0RF Rx Instructions: administer while awake oxycodone 5 mg tablet 5 mg PO Q6H PRN (Reason: pain) 3 Days Qty: 12 0RF No Action multivitamin [Multi-Day] Tablet 1 tab PO DAILY Primary Care Provider: Care Physician,No Primary Referrals: Heber Mcclain MD [Med Staff - Active Staff] - Care Physician,No Primary [Primary Care Provider] - Activity Restrictions/Additional Instructions: Please use the antibiotic eyedrops as directed to prevent infection from your corneal abrasion. As it is a very large corneal abrasion please follow-up with ophthalmology to ensure there is no need for further intervention. Return to the ER should you have any further concerns Print Language: Belarusian Disposition Disposition: Home, Self Care Discharge Date/Time: 08/30/24 00:17
[2024-08-29] MEDS: Tetracaine 0.5% Ophthalmic Bottle 1 DRP RIGHT EYE (23:49)
[2024-08-29] MEDS: Fluorescein 1 MG STRIP 1 STRIP RIGHT EYE (23:53)
[2024-08-30 00:08] VITALS: BP 161/98; PULSE 80; RESP 18; TEMP 36.6; O2SAT 100
--- NOTE | 2024-08-30 00:10 | ED.RN ---
Per MD orders, visual acuity does not need to be completed on this patient.
[2024-08-30] MEDS: oxyCODONE 5 MG Tablet 10 MG PO (00:12)
[2024-08-30] MEDS: Ciprofloxacin 0.3% 2.5ml Bottle 2 DRP RIGHT EYE (00:12)
== END 2024-08-30 00:17 | disposition home or self-care (01) ==
PROVIDERS: Emergency Provider Emergency Medicine; Visit Provider Emergency Medicine
DX: S05.01XA Injury of conjunctiva and corneal abrasion without foreign body, right eye, initial encounter (principal); I85.00 Esophageal varices without bleeding; X58.XXXA Exposure to other specified factors, initial encounter; Y93.89 Activity, other specified; F10.10 Alcohol abuse, uncomplicated; Y90.9 Presence of alcohol in blood, level not specified; Z97.3 Presence of spectacles and contact lenses
CPT/HCPCS: 99282

== ENCOUNTER → 2024-09-04 | Outpatient (CLI) | payer MEDICAID, SELFPAY | END | disposition home or self-care (01) | LOC: LABSPEC 16:33 | PROVIDERS: PCP Ophthalmology; Visit Provider Ophthalmology | DX: H16.041 Marginal corneal ulcer, right eye (principal) | CPT/HCPCS: 87070; 87077; 87186; 87205 ==

== ENCOUNTER 2025-03-12 10:23 | Emergency (ER) | payer MEDICAID, SELFPAY ==
[2025-03-12 10:23] VITALS: BP 133/88; PULSE 76; RESP 16; TEMP 36.1; O2SAT 100
[2025-03-12 10:26] VITALS: BMI 28.2
--- NOTE | 2025-03-12 10:48 | EX.ED.GUMALE ---
HPI History of Present Illness Chief Complaint: Male Pain/Injury Informant: patient Pain Onset: Yesterday Context: Gradual Onset Timing: Continuous Current Severity: Severe Maximum Severity: Severe Worsened by: Nothing Relieved by: Nothing Narrative Narrative: Patient presents with right testicular pain that began yesterday. Patient states it has gradually gotten worse. Patient describes it as a squeezing sensation. Patient also states he has pain over his sacral area. Patient states nothing makes the pain worse. Patient states nothing makes it better. Patient admits to some nausea but denies any vomiting. Patient denies any dysuria or hematuria. Patient denies any fevers or chills. PFSH PFSH Medical History Broken bones Cirrhosis Methamphetamine abuse Alcohol abuse Home Medications ?Medication ?Instructions ?Recorded ?Last Taken ?Type multivitamin 1 tab PO DAILY 01/05/21 Unknown History ciprofloxacin HCl 0.3 % eye drops 2 drp RIGHT EYE 4X/DAY 7 days #10 08/30/24 Unknown Rx mL oxycodone 5 mg tablet 5 mg PO Q6H PRN pain 3 days #12 03/12/25 Unknown Rx tabs Allergy/AdvReac Type Severity Reaction Status Date / Time bee pollen Allergy Other Verified 03/12/25 10:36 ibuprofen AdvReac Upset Verified 03/12/25 10:36 Stomach Surgical History (Updated 03/12/25 @ 11:[address] Josue Dowell DO) Hx of total knee replacement Social History Smoking Status: Current every day smoker tobacco type: cigarettes ROS ROS ED Constitutional Constitutional ED: Denies chills or fever(s) Eyes Eyes: Denies blurry vision or change in vision ENT ENT ED: Denies rhinorrhea or sore throat Cardiovascular Cardiovascular: Denies chest pain or palpitations Respiratory/Chest Respiratory/Chest: Denies cough or dyspnea Gastrointestinal Gastrointestinal: Reports nausea; Denies vomiting Genitourinary Genitourinary ED: Denies dysuria or hematuria Musculoskeletal Musculoskeletal: Reports back pain; Denies neck pain Integumentary Denies abscess or rash Neurologic Neurologic: Denies headache(s) or weakness Allergic/Immunologic Allergic/Immunologic ED: Denies mouth swelling or urticaria EXAM Physical Exam Const Vital Signs: 03/12/25 10:23 03/12/25 13:11 Temperature 96.9 F L Temperature Source Temporal Pulse Rate 76 63 Respiratory Rate 16 14 Blood Pressure 133/88 H 141/80 H Blood Pressure Mean 103 100 Pulse Ox 100 99 Oxygen Delivery Method Room Air Room Air Positive well nourished and well developed General Appearance ED: well developed and NAD HEENT Reports moist mucous membranes Neck supple and no JVD Resp normal respiratory effort and clear to auscultation bilaterally Cardio regular rate and regular rhythm GI non-tender and non-distended Palpation: soft Narrative: There is mild tenderness over the right testicle. There is no vertical lie. Epididymis is posterior. There are no inguinal hernias noted. Back/Spine Back/Spine Narrative: There is mild tenderness over the right lumbar paraspinal muscles and sciatic notch. There is good range of motion. Strength is 5/5 bilateral in the lower extremities. There are no sensory deficits noted. Extremity normal to inspection General Extremety ED: Negative for edema or tenderness General Extremity: Negative for edema Neuro oriented x3, CN's II-XII intact bilaterally, moves all extremities, no focal motor deficits and no sensory deficits noted Sensorium / Orientation: alert Motor Exam: strength 5/5 throughout Psych mental status grossly normal MDM MDM MDM Narrative Medical decision making narrative: Differential diagnosis includes epididymitis, ureteral calculus, urinary tract infection, sciatica, and hydrocele. Ultrasound of the testicle will be obtained to assess for testicular torsion, epididymitis, and hydrocele. CBC will be obtained to assess for leukocytosis and anemia. Basic metabolic profile will be obtained to assess for electrolyte abnormality and renal function. Urinalysis will be obtained to assess for urinary tract infection and hematuria. History & Record Review Additional record(s) reviewed:: Prior inpatient record and Prior ED visit Lab Data Attestation: I reviewed the patient's lab results. Lab results narrative: CBC was reviewed and was within normal. Basic metabolic profile was reviewed and was essentially within normal limits. Urinalysis was reviewed. There is no evidence of urinary tract infection or hematuria. Labs: Laboratory Results - last 24 hr 03/12/25 03/12/25 11:20 12:24 WBC 5.2 RBC 4.58 L Hgb 14.1 Hct 41.6 MCV 90.8 MCH 30.8 MCHC 33.9 RDW Std Deviation 43.8 RDW Coeff of John 13.2 Plt Count 137 L MPV 12.0 Immature Gran % (Auto) 0.200 Neut % (Auto) 63.5 Lymph % (Auto) 25.6 [place] % (Auto) 8.2 Eos % (Auto) 1.7 Baso % (Auto) 0.8 Absolute Neuts (auto) 3.3 Absolute Lymphs (auto) 1.32 Nucleated RBC % 0 Sodium 137 Potassium 4.0 Chloride 105 Carbon Dioxide 23.2 Anion Gap 9 BUN 23 H Creatinine 0.74 Estim Creat Clear Calc 134.46 Est GFR (MDRD) Non-Af 107 BUN/Creatinine Ratio 31.0 H Glucose 104 H Calcium 9.2 Urine Color Straw Urine Clarity Clear Urine pH 7.0 Ur Specific [place] 1.010 Urine Protein 30 H Urine Glucose (UA) Normal Urine Ketones Negative Urine Occult Blood Negative Urine Nitrite Negative Urine Bilirubin Negative Urine Urobilinogen Normal Ur Leukocyte Esterase Negative Urine RBC 0 SEEN Urine WBC 0 SEEN Ur Squamous Epith Cells 0 SEEN Urine Bacteria 0 SEEN Urine Mucus 0 SEEN Radiography Diagnostic Testing: Clinical Impression(s) from Imaging Studies Testicular Ultrasound 03/12/25 11:11 IMPRESSION: Small bilateral hydroceles. Normal arterial and venous flow. No testicular mass is seen. Reading Location: [id number] Testicular ultrasound was obtained. There are small bilateral hydroceles. There is no testicular torsion. There is no testicular mass. There is no evidence of epididymitis. This was interpreted by the radiologist and was also independently reviewed by myself. Treatment and Re-Evaluation Narrative: Patient was given IV fluids, Zofran, and morphine. Patient was feeling better on reevaluation. Patient was advised of the findings. Patient was given a prescription for a short course of oxycodone. Patient was advised this could be radicular pain from a yearly nerve. Patient was instructed to follow-up with a primary care physician in 5 to 7 days for further evaluation and management. Patient understood and was agreeable with the plan. All questions were answered. Discharge Plan Triage Chief Complaint: Male Pain/Injury ED Provider: Josue Dowell Dx/Rx/DC Orders Clinical Impression: Pain in right testicle, Elevated blood pressure reading Instructions: ED Testicular Pain, Unclear Cause Prescriptions: Continued oxycodone 5 mg tablet 5 mg PO Q6H PRN (Reason: pain) 3 Days Qty: 12 0RF No Action multivitamin [Multi-Day] Tablet 1 tab PO DAILY ciprofloxacin HCl 0.3 % drops 2 drp RIGHT EYE 4X/DAY 7 Days Qty: 10 0RF Rx Instructions: administer while awake Primary Care Provider: Dallin Castro Referrals: Dallin Castro MD [Primary Care Provider] - Vivien Franks MD [Med Staff - Prep Room Supervisor] - 5-7 Days Print Language: Serbian Disposition Disposition: Home, Self Care
--- NOTE | 2025-03-12 11:11 | US_ITS ---
PROCEDURE: TESTICULAR WITH ARTERIAL FLOW 03/12/2025 REASON FOR EXAM: RIGHT TESTICULAR PAIN TECHNIQUE: Procedure Code: USTES Modality: US Procedure: TESTICULAR WITH ARTERIAL FLOW COMPARISON: None FINDINGS: RIGHT testicle: 3.8 cm x 2.4 cm x 2 cm Right epididymis: 1 cm x 1.5 cm LEFT testicle: 3.7 cm x 2.8 cm x 1.9 cm Left epididymis: 1 cm x 1.2 cm Other findings: Small bilateral hydroceles. Normal arterial and venous flow. US/Testicular with Arterial Flow IMPRESSION: Small bilateral hydroceles. Normal arterial and venous flow. No testicular mass is seen. Reading Location: [facility]
[2025-03-12 11:34] LABS: Hematocrit 41.6 % (40-54); Hemoglobin 14.1 g/dL (13.0-16.5); Immature Granulocytes Count 0.010 X10^3/uL (0.0-0.0); Mean Corp Hgb Conc 33.9 g/dL (32-36); Mean Corpuscular Volume 90.8 fL (80-94); Mean Platelet Vol. 12.0 fl (6.2-12.0); NRBC Flagged by Analyzer 0 % (0-5); Platelet Count 137 K/mm3 (150-450); RBC Distribution Width CV 13.2 % (11.6-14.6); RBC Distribution Width SD 43.8 fl (35.1-43.9); Red Blood Count 4.58 M/mm3 (4.6-6.2); White Blood Count 5.2 K/mm3 (4.4-11.0)
[2025-03-12 11:50] LABS: Anion Gap 9 (5-15); BUN 23 mg/dL (4-19); BUN/Creat Ratio 31.0 RATIO (10-20); Calcium,Total 9.2 mg/dL (7.6-11.0); Carbon Dioxide 23.2 mmol/L (21.0-32.0); Chloride 105 mmol/L (98-108); Estimated Creatinine Clearance 134.46 ml/min (50-250); Glucose 104 mg/dL (70-99); Potassium 4.0 mmol/L (3.3-5.1)
[2025-03-12] MEDS: 0.9% Normal Saline (1000mL) 1,000 ML 1000 ML IV (11:57)
[2025-03-12 12:28] LABS: Mucous, Urine 0 SEEN /hpf (<or=2+); Red Blood Cells-Urine 0 SEEN /hpf (0-5); Squamous Epithelial Cells - UA 0 SEEN /hpf (0-5)
[2025-03-12 12:43] LABS: Color, Urine Straw (Yellow); Glucose, Dipstick Normal (Normal); Ketone-Dipstick Negative (Negative); Leukocyte Esterase-Dipstick Negative /ul (Negative); Nitrite-Dipstick Negative (Negative); Occult Blood-Urine Negative /ul (Negative); Protein-Dipstick 30 mg/dl (Negative); Specific Gravity, Urine 1.010 (1.002-1.030); Urine Bilirubin Dipstick Negative (Negative)
[2025-03-12 13:11] VITALS: BP 141/80; PULSE 63; RESP 14; O2SAT 99
[2025-03-12 13:54] VITALS: BP 141/80; PULSE 88; RESP 16; TEMP 36.9; O2SAT 98
== END 2025-03-12 13:55 | disposition home or self-care (01) ==
PROVIDERS: Emergency Provider Emergency Medicine; PCP Ophthalmology; Visit Provider Emergency Medicine
DX: N50.811 Right testicular pain (principal); R03.0 Elevated blood-pressure reading, without diagnosis of hypertension; F17.210 Nicotine dependence, cigarettes, uncomplicated
CPT/HCPCS: 76870; 80048; 81001; 85025; 93976; 96361; 96374; 96375; 99283; A4216; J2405